=== PATIENT | male | born 1930 | race Caucasian/White ===

== ENCOUNTER 2016-11-02 09:37 | Day surgery (SDC) | payer MEDICARE, BC ==
[~2016-11-02 09:37] MED LIST: Apraclonidine 0.5% Ophth Soln 5 ML Bot EYERT SCH; Cefuroxime 10 MG/ML SYRINGE EYELF SCH; Cefuroxime 10 MG/ML SYRINGE EYERT SCH; Lidocaine 1% PF 2 ML SDV INJECT SCH; Phenylephrine 2.5% Ophth Soln 2 ML Bot EYERT SCH; Pilocarpine 4% Ophth Soln 15 ML Bot EYERT SCH; Polymyxin B/Trimethoprim 10 ML Bottle EYERT SCH; Proparacaine 0.5% Ophth Soln 15 ML Bottle EYEBOTH SCH; Tetracaine 0.5% 2 ML Bottle EYERT SCH
[2016-11-02] MEDS: Polymyxin B/Trimethoprim 10 ML Bottle EYELF SCH ×4 (10:17→12:05)
[2016-11-02] MEDS: Apraclonidine 0.5% Ophth Soln 5 ML Bot EYELF SCH ×4 (10:22→12:05)
[2016-11-02] MEDS: Phenylephrine 2.5% Ophth Soln 2 ML Bot EYELF SCH ×6 (10:28→11:42)
--- NOTE | 2016-11-02 11:08 | PCM.PREANE ---
Preanesthetic Assessment - Anesthesia/Transfusion/Family Hx Anesthesia History: Prior Anesthesia Without Reaction Type of Anesthesia Reaction: Unknown Family History of Anesthesia Reaction: No Type of Transfusion Reactions: Reports: Unknown - Review of Systems General: No Symptoms Pulmonary: No Symptoms Cardiovascular: No Symptoms Gastrointestinal: No symptoms Neurological: No Symptoms Other: Reports: None - Physical Assessment NPO Status Date: 11/02/16 NPO Status Time: 08:30 Pulse: 53 O2 Sat by Pulse Oximetry: 95 Respiratory Rate: 20 Blood Pressure: 107/52 Vital Signs: Last Vital Signs Temp 36.5 C 11/02/16 10:05 Pulse 53 L 11/02/16 10:05 Resp 20 11/02/16 10:05 BP 102/52 L 11/02/16 10:05 Pulse Ox 95 11/02/16 10:05 Height: 1.8 m Weight: 74.843 kg ASA Class: 2 Mental Status: Alert & Oriented x3 Airway Class: Mallampati = 2 Dentition: Reports: Dentures, Edentulous Thyro-Mental Finger Breadths: 3 Mouth Opening Finger Breadths: 3 ROM/Head Extension: Full Lungs: Clear to auscultation, Normal respiratory effort Cardiovascular: Regular Rate, Regular Rhythm - Allergies Allergies/Adverse Reactions: Allergies Allergy/AdvReac Type Severity Reaction Status Date / Time No Known Allergies Allergy Verified 11/01/16 14:05 - Blood Blood Available: No Product(s) Available: None - Anesthesia Plan Pre-Op Medication Ordered: None - Acknowledgements Anesthesia Type Planned: MAC Pt an Appropriate Candidate for the Planned Anesthesia: Yes Alternatives and Risks of Anesthesia Discussed w Pt/Guardian: Yes Pt/Guardian Understands and Agrees with Anesthesia Plan: Yes PreAnesthesia Questionnaire - HOME MEDS Home Medications: Home Meds Aspirin 81 mg PO DAILY 11/01/16 [History] B2/Vit A,C & E/Lut/Zeaxanth/Mn [Icaps] 1 each PO DAILY 11/01/16 [History] Chlorthalidone [Chlorthalidone] 25 mg PO DAILY 11/01/16 [History] Fluticasone/Salmeterol [Advair 250-50 Diskus] 2 puff INH DAILY 11/01/16 [History ] Melatonin 10 mg PO BEDTIME PRN 11/01/16 [History] Orion-3S/DHA/Epa/Fish Oil/D3 [Fish Oil + D3 Softgel] 1 cap PO DAILY 11/01/16 [ History] Potassium Chloride 10 meq PO DAILY 11/01/16 [History] - CURRENT (IN HOUSE) MEDS Current Meds: Current Medications Apraclonidine HCl (Iopidine 0.5% Ophth Soln) 0 ml EYELF ASDIRECTED HARPREET Stop: 11/02/16 18:00 Last Admin: 11/02/16 10:22 Dose: 1 drop Cefuroxime Sodium (Zinacef) 0 mg EYELF ASDIRECTED HARPREET Stop: 11/02/16 18:00 Lidocaine HCl (Xylocaine-Mpf 1%) 10 ml INJECT ASDIRECTED HARPREET Stop: 11/02/16 18:00 Phenylephrine HCl (Eric-Synephrine 2.5% Ophth Soln) 0 ml EYELF ASDIRECTED HARPREET Stop: 11/02/16 18:00 Last Admin: 11/02/16 10:48 Dose: 1 drop Pilocarpine HCl (Pilocar 4% Ophth Soln) 0 ml EYELF ASDIRECTED HARPREET Stop: 11/02/16 18:00 Polymyxin/Trimethoprim Sulfate (Polytrim Ophth Soln) 0 ml EYELF ASDIRECTED HARPREET Stop: 11/02/16 18:00 Last Admin: 11/02/16 10:58 Dose: 1 drop Proparacaine HCl (Proparacaine 0.5% Ophth Soln) 0 ml EYEBOTH ASDIRECTED HARPREET Stop: 11/02/16 18:00 Tetracaine (Pontocaine 0.5% Ophth Drops) 0 ml EYELF ASDIRECTED HARPREET Stop: 11/02/16 18:00 Tropicamide (Mydriacyl 1% Ophth Soln) 0 ml EYELF ASDIRECTED HARPREET Stop: 11/02/16 18:00 Last Admin: 11/02/16 10:53 Dose: 1 drop Preanesthetic Assessment - PHYSICAL ASSESSMENT O2 Sat by Pulse Oximetry: 95 RR: 20 Vital Signs: Last Vital Signs Temp 36.5 C 11/02/16 10:05 Pulse 53 L 11/02/16 10:05 Resp 20 11/02/16 10:05 BP 102/52 L 11/02/16 10:05 Pulse Ox 95 11/02/16 10:05 Height: 1.8 m Weight: 74.843 kg NPO Status Date: 11/02/16 NPO Status Time: 08:30 - ALLERGIES Allergies/Adverse Reactions: Allergies Allergy/AdvReac Type Severity Reaction Status Date / Time No Known Allergies Allergy Verified 11/01/16 14:05
[2016-11-02] MEDS: Lidocaine 1% PF 2 ML SDV INJECT SCH ×2 (11:14→11:55)
[2016-11-02] MEDS: Pilocarpine 4% Ophth Soln 15 ML Bot EYELF SCH ×2 (11:15→12:05)
[2016-11-02] MEDS: Tetracaine 0.5% 2 ML Bottle EYELF SCH ×2 (11:15→11:55)
--- NOTE | 2016-11-02 12:14 | PCM48HPAN ---
Post Anesthesia Note - EVALUATION WITHIN 48HRS OF ANESTHETIC Vital Signs in Normal Range: Yes Patient Participated in Evaluation: Yes Respiratory Function Stable: Yes Airway Patent: Yes Cardiovascular Function Stable: Yes Hydration Status Stable: Yes Pain Control Satisfactory: Yes Nausea and Vomiting Control Satisfactory: Yes Mental Status Recovered: Yes
[2016-11-02 12:30] VITALS: BP 146/54
== END 2016-11-02 12:17 | disposition home or self-care (01) ==
LOC: JD.SDS 09:37
PROVIDERS: ATTEND Ophthalmology
DX: H26.9 Unspecified cataract (principal); J45.909 Unspecified asthma, uncomplicated; Z79.82 Long term (current) use of aspirin; Z79.899 Other long term (current) drug therapy; Z98.890 Other specified postprocedural states; F17.210 Nicotine dependence, cigarettes, uncomplicated
CPT/HCPCS: 66984; A9270; J0697; C1780